=== PATIENT | male | born 1970 | race Caucasian/White ===

== ENCOUNTER 2016-12-24 14:48 | Emergency (ER) | payer MEDICAID ==
[~2016-12-24] VITALS: Ht 165.1 cm; Wt 67.7 kg
[2016-12-24 14:53] VITALS: Ht 165.1 cm; Wt 67.7 kg
[2016-12-24] MEDS ORDERED: IBUP-1542 PO (16:39)
[2016-12-24] MEDS ORDERED: ONDA4TAB8 PO (16:40)
--- NOTE | 2016-12-24 16:58 | ERD ---
ER Documentation Chief Complaint Date/Time DATE: 12/24/16 TIME: 16:41 Chief Complaint accidentally drunk 20 ccc of clorax HPI This is a 46-year-old male who presents to the emergency department for accidentally ingesting approximately 20-30 mL of Clorox liquid bleach 2 hours ago. Patient states that he mistakenly took a water bottle from his workplace, not knowing that it contains chlorine. 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 Patient vomited once with clear colored emesis and is complaining of throat irritation upon arrival. Patient denies fever, abdominal pain, hematochezia, nausea, dysphagia, shortness of breath or drooling. ROS All systems reviewed and are negative except as per history of present illness. Medications Home Meds Active Scripts Ondansetron Hcl* (Zofran*) 4 Mg Tablet, 4 MG PO Q6H for NAUSEA AND/OR VOMITING, #30 TAB Prov:MARCELINO PALM 12/24/16 Ibuprofen* (Motrin*) 600 Mg Tab, 600 MG PO Q6H Y for PAIN AND OR ELEVATED TEMP, #30 TAB Prov:MARCELINO PALM 12/24/16 Physical Exam Vitals Vital Signs Date Time Temp Pulse Resp B/P Pulse Ox O2 Delivery O2 Flow Rate FiO2 12/24/16 14:53 98.1 83 18 156/83 99 Physical Exam Physical Exam CONST: Well-developed, well-nourished, in no acute distress. Nontoxic in appearance. HEENT: Atraumatic. Normal conjunctiva. EOM intact. TM intact. External ear is normal. Clear oropharnyx without erythema. No uvular deviation. Moist mucous membranes. Supple neck. No meningismus. No submandibular induration. RESP: Clear to auscultation bilaterally. No wheezing. CARDIO: Regular rate and rhythm, no murmurs. ABD: Soft, non tender, non distended. Normal bowel sounds. No McBurney's point tenderness. No guarding or rigidity. No peritoneal signs. SKIN: No petechiae or rashes. BACK: No midline or flank tenderness. EXT: No cyanosis or edema. Distal pulses equal and bilateral. NEURO: Awake and alert, appropriate for age. 5/5 strength in all extremities. Normal speech. Steady gait. Procedures/MDM EMERGENCY DEPARTMENT COURSE/MEDICAL DECISION MAKING This is a 46-year-old male who comes to the emergency room secondary to accidentally ingesting 20-30 mL of Chlorox bleach. Vital signs reviewed and is hemodynamically stable. Physical exam is unremarkable. Patient only complains of throat irritation throughout the ED course. Poison control was notified and given his normal physical exam and the small amount of the Chlorine bleach that he ingested, I believe the patient is stable for discharge with outpatient management. My primary diagnosis is foreign body ingestion. Secondary diagnosis is sore throat Differential diagnoses considered but not limited to esophagitis, peptic ulcer disease, drug overdose, suicidal ideation. The patient was discharged for outpatient management with a prescription for ibuprofen and Zofran. Patient was instructed to drink lots of fluids and eat cold foods. The patient was advised to followup with their PMD in 1-2 days and to return to the Emergency Department if there are any new or worsening symptoms. The patient understood and agreed with the diagnosis, treatment and plan. Patient is stable for discharge at this time. Departure Diagnosis: Primary Impression: Foreign body ingestion Encounter type: initial encounter Qualified Code: T18.9XXA - Foreign body ingestion, initial encounter Additional Impression: Sore throat Condition: Stable Patient Instructions: Self-Care for Sore Throats, Swallowed Foreign Body (Adult ) [facility]errals[facility] Usted se osullivan hecho un examen mdico de control que le indica que no est en mau condicin que requiera tratamiento urgente en el Departamento de Emergencia. Un estudio ms profundo y el tratamiento de cerna condicin pueden esperar sin ningn riesgo hasta que usted sea atendida/o en el consultorio de cerna mdico o mau cl paris. Es responsabilidad suya arreglar mau mehreen para el seguimiento del tracy. MANEJO DE CONDICIONES NO URGENTES EN EL FUTURO 1) Si usted tiene un mdico de atencin primaria: Usted debera llamar a cerna mdico de atencin primaria antes de venir al departamento de emergencia. Despus de las horas de consultorio, cerna doctor o cerna asociado/a est disponible por telfono. El mdico o enfermero de migue en el servicio telefnico puede asesorarle por katherin medio para atender el problema, o tracy contrario se puede programar mau mehreen. 2) Si usted no tiene un mdico de atencin primaria: Llame al mdico o clnica de referencia que aparece abajo jef las horas de consultorio para hacer mau mehreen para que le vean. CLINICAS: [facility] [phone] [facility] [phone] [facility] [phone] [place] [phone] [place] [id number] [phone] [facility] [phone] [address] [facility]. [facility] () ted se osullivan hecho un examen mdico de control que le indica que no est en mau condicin que requiera tratamiento urgente en el Departamento de Emergencia. Un estudio ms profundo y el tratamiento de cerna condicin pueden esperar sin ningn riesgo hasta que usted sea atendida/o en el consultorio de cerna mdico o mau cl paris. Es responsabilidad suya arreglar mau mehreen para el seguimiento del tracy. MANEJO DE CONDICIONES NO URGENTES EN EL FUTURO 1) Si usted tiene un mdico de atencin primaria: Usted debera llamar a cerna mdico de atencin primaria antes de venir al departamento de emergencia. Despus de las horas de consultorio, cerna doctor o cerna asociado/a est disponible por telfono. El mdico o enfermero de migue en el servicio telefnico puede asesorarle por katherin medio para atender el problema, o tracy contrario se puede programar mau mehreen. 2) Si usted no tiene un mdico de atencin primaria: Llame al mdico o condado institucions de referencia que aparece abajo jef las horas de consultorio para hacer mau mehreen para que le vean. SI USTED NO PUEDE PAGAR PARA JOSE UN MEDICO puede ir a: [facility] [address] [place] [address] [facility] [address] [place] [address] [facility] [address] [place] [address] [facility] [address] [place], [place] [id number] Additional Instructions: beber yolanda agua y comer alimentos fros Llame a cerna mdico de atencin primaria maana para hacer mau mehreen jef los pr ximos blanca 1-2. Volver al Departamento de la emergencia inmediatamente si tiene cualquier s ntoma nuevo o que empeora. [place] todos los medicamentos susana lo indique. MARCELINO PALM Dec 24, 2016 16:51
== END 2016-12-24 16:44 | disposition home or self-care (01) ==
LOC: FTE 14:48 → E/R 16:44
DX: T54.91XA Toxic effect of unspecified corrosive substance, accidental (unintentional), initial encounter (principal); J02.9 Acute pharyngitis, unspecified; Y99.0 Civilian activity done for income or pay
CPT/HCPCS: 99283